=== PATIENT | female | born 1995 | race Caucasian/White ===

== ENCOUNTER → 2018-03-29 16:25 | Outpatient (CLI) | payer SELFPAY ==
[2011-10-09 06:52] VITALS: BMI 33.3
[2018-03-29 17:14] LABS: APPEARANCE CLEAR (CLEAR); BILIRUBIN NEGATIVE (NEGATIVE); COLOR YELLOW (YELLOW); GLUCOSE NEGATIVE (NEGATIVE); KETONE NEGATIVE (NEGATIVE); NITRITE NEGATIVE (NEGATIVE); PROTEIN NEGATIVE (NEGATIVE); SPECIFIC GRAVITY 1.015 (1.005-1.020); UROBILINOGEN NORMAL (NORMAL)
== END | disposition home or self-care (01) ==
LOC: D.LDO 16:25
PROVIDERS: Obstetrics & Gynecology
DX: O26.899 Other specified pregnancy related conditions, unspecified trimester (principal); Z3A.00 Weeks of gestation of pregnancy not specified

== ENCOUNTER 2018-05-12 20:24 | Outpatient (CLI) | payer MEDICAID ==
[2011-10-09 06:52] VITALS: BMI 33.3
[2018-05-12 21:58] LABS: APPEARANCE CLEAR (CLEAR); BILIRUBIN NEGATIVE (NEGATIVE); COLOR YELLOW (YELLOW); GLUCOSE NEGATIVE (NEGATIVE); KETONE NEGATIVE (NEGATIVE); NITRITE NEGATIVE (NEGATIVE); PROTEIN NEGATIVE (NEGATIVE); UROBILINOGEN NORMAL (NORMAL)
[2018-05-12 21:59] LABS: WHITE CELLS - URINE 0-5 /hpf (0-5)
[2018-05-12 22:00] LABS: BACTERIA MODERATE /hpf (NONE SEEN)
== END 2018-05-12 23:00 ==
LOC: D.LDO 20:24
PROVIDERS: Obstetrics & Gynecology
DX: O26.893 Other specified pregnancy related conditions, third trimester (principal); Z3A.35 35 weeks gestation of pregnancy; M54.5 Low back pain; R42 Dizziness and giddiness

== ENCOUNTER 2018-05-29 22:10 | Outpatient (CLI) | payer MEDICAID ==
[2011-10-09 06:52] VITALS: BMI 33.3
[2018-06-05 21:45] VITALS: BMI 51.6
== END 2018-05-29 22:28 | disposition home or self-care (01) ==
LOC: D.LDO 22:10
DX: O26.893 Other specified pregnancy related conditions, third trimester (principal); Z3A.37 37 weeks gestation of pregnancy

== ENCOUNTER 2018-06-05 21:06 | Inpatient (IN) | payer MEDICAID ==
[~2018-06-05] VITALS: Ht 165.1 cm; Wt 140.6 kg
--- NOTE | ~2018-06-05 | OP ---
PATIENT NAME: LOUIS CACERES MEDICAL RECORD: [id number] :96 LOCATION:[id number] ADMISSION DATE:06/05/18 SURGEON: MONO DAY MD DATE OF OPERATION: 06/07/2018 DELIVERY NOTE PREDELIVERY DIAGNOSIS: at term. POSTDELIVERY DIAGNOSES: 1. Mother delivered at term. 2. hemorrhage. PROCEDURE: Vaginal delivery. ATTENDING: Mono Day MD ANESTHETIC: Continuous lumbar epidural. FLORIST'S DECORATOR: Saeed Yu. FINDINGS: Viable female , DENAE presentation. Apgars were 9 and 9. Weight is 8 pounds. Second-degree laceration with 2-0 Vicryl and 4-0 chromic repair. Uterine atony immediately responding to 0.2 mg of Methergine IM and 600 mcg of Cytotec per rectum. Placenta spontaneous and intact. ESTIMATED BLOOD LOSS: 550 cc. DISPOSITION: Mother and infant recovered in the room. We will check hematocrit within 12 hours. TRANSINT:[id number] Voice Confirmation ID: [id number] DOCUMENT ID: [id number] MONO DAY MD at 1032 CC: [id number] DICTATION DATE: 06/07/18 1352 LOCKSTITCH BINDER: 06/07/18 1446 DIS IN 06/08/18 [id number] [place] [address]
[2018-06-05 21:45] VITALS: BP 135/64; Ht 165.1 cm; Wt 140.6 kg
[2018-06-05 21:54] LABS: APPEARANCE CLEAR (CLEAR); BILIRUBIN NEGATIVE (NEGATIVE); COLOR YELLOW (YELLOW); GLUCOSE NEGATIVE (NEGATIVE); KETONE NEGATIVE (NEGATIVE); NITRITE NEGATIVE (NEGATIVE); PROTEIN NEGATIVE (NEGATIVE); SPECIFIC GRAVITY 1.025 (1.005-1.020); UROBILINOGEN NORMAL (NORMAL)
[2018-06-05 21:54] LABS: HEMATOCRIT 31.7 % (36.0-48.0); HEMOGLOBIN 10.1 g/dL (12-16); MCH 26.2 pg (26.0-34.0); MCHC 31.9 g/dL (31.0-37.0); MCV 82.3 fL (80.0-100.0); MEAN PLATELET VOLUME 10.4 fL (7.4-10.4); RBC 3.85 10x6/uL (4.00-5.40); RDW 14.5 % (11.5-14.5); WBC 10.4 10x3/uL (4.8-10.8)
[2018-06-07 07:27] LABS: RAPID PLASMA REAGIN Non Reactive (Non Reactive)
[2018-06-07 14:38] LABS: HEMATOCRIT 29.2 % (36.0-48.0); HEMOGLOBIN 9.1 g/dL (12-16); MCH 26.1 pg (26.0-34.0); MCHC 31.2 g/dL (31.0-37.0); MCV 83.7 fL (80.0-100.0); RBC 3.49 10x6/uL (4.00-5.40); RDW 14.8 % (11.5-14.5)
[2018-06-07 14:46] LABS: WBC 18.3 10x3/uL (4.8-10.8)
[2018-06-08 06:41] LABS: HEMATOCRIT 25.7 % (36.0-48.0); HEMOGLOBIN 8.3 g/dL (12-16); MCH 26.4 pg (26.0-34.0); MCHC 32.3 g/dL (31.0-37.0); MCV 81.8 fL (80.0-100.0); MEAN PLATELET VOLUME 9.9 fL (7.4-10.4); RBC 3.14 10x6/uL (4.00-5.40); RDW 15.5 % (11.5-14.5)
[2018-06-08 06:42] LABS: WBC 12.1 10x3/uL (4.8-10.8)
[2018-06-08 08:25] VITALS: BP 128/62
[2018-06-08] MEDS ORDERED: TYLENOL W/CODEI1 TAB PO (14:37)
== END 2018-06-08 16:06 | disposition home or self-care (01) | DRG 806 ==
LOC: D.LD 21:06 → D.WS 06-07 22:00
PROVIDERS: Obstetrics & Gynecology
PROC: 3E0P7VZ Introduction of Hormone into Female Reproductive, Via Natural or Artificial Opening (ICD-10-PCS; principal; 2018-06-05)
PROC: 10E0XZZ Delivery of Products of Conception, External Approach (ICD-10-PCS; 2018-06-07)
PROC: 0KQM0ZZ Repair Perineum Muscle, Open Approach (ICD-10-PCS; 2018-06-07)
DX: O70.1 Second degree perineal laceration during delivery (principal); O72.1 Other immediate postpartum hemorrhage; Z37.0 Single live birth; Z3A.38 38 weeks gestation of pregnancy; Z87.891 Personal history of nicotine dependence